=== PATIENT | female | born 1985 | race Caucasian/White ===

== ENCOUNTER 2024-09-20 09:36 | Emergency (ER) | payer OTHER, SELFPAY ==
[2024-09-20 09:46] VITALS: BP 138/110; PULSE 81; RESP 16; TEMP 36.4; O2SAT 100
--- NOTE | 2024-09-20 10:34 | ED.EAR ---
HPI - Ear Problem General Chief complaint: Ear Stated complaint: ears clogged Time Seen by Provider: 09/20/24 10:35 Source: patient Mode of arrival: ambulatory Limitations: no limitations History of Present Illness HPI Narrative: 39-year-old female presented for complaint of bilateral ears feeling clogged and decreased hearing. Onset yesterday. Denies tinnitus, dizziness, nausea, vomiting, fevers or lethargy. Reports recent nasal congestion and drainage. MD Complaint: ear pain Related Data Home Medications ?Medication ?Instructions ?Recorded ?Confirmed ?Last Taken ?Type No Home Medications 09/20/24 09/20/24 Unknown History Allergies Allergy/AdvReac Type Severity Reaction Status Date / Time No Known Allergies Allergy Unverified 09/20/24 10:10 Review of Systems Review of Systems: CONSTITUTIONAL: Denies malaise, chills, or fever. EYES: Denies visual changes, redness, or discharge. ENT: Denies rhinorrhea, congestion, sinus pain, and sore throat. Reports ears clogged CARDIOVASCULAR: Denies chest pain, palpitations, or edema. RESPIRATORY: Denies cough or dyspnea. GASTROINTESTINAL: Denies abdominal pain, nausea, vomiting, diarrhea SKIN: Denies rash or itching. MUSCULOSKELETAL: Denies myalgia. NEUROLOGIC: Denies headache. All systems reviewed & are unremarkable except as noted in HPI and below PMFSH Family History Family History (Updated 06/11/17 @ 15:00 by DOCTOR UNKNOWN) Grandparent Diabetes mellitus Hypertension Father Hypertension Mother Hypertension Social History Social History Smoking status: Never smoker Second hand tobacco smoke exposure: No Alcohol intake: never Comments At time of signature, agree with nursing past medical, surgical, social and family history. There is no relevant family history pertinent to the presenting complaint Exam Narrative: GENERAL: Well-appearing EYES: PERRLA, conjunctivae clear ENT: Nares clear. Mucous membranes moist. TMs unable to visualize bilaterally due to excess cerumen. canal not erythematous, no drainage, no tragal tenderness. Oropharynx not erythematous without lesions. no drooling, no hoarseness, no trismus, uvula midline. NECK: Supple. No lymphadenopathy CHEST: even unlabored SKIN: Warm, dry, no rash. NEURO: Alert and oriented x3. PSYCH: Normal mood and affect Course Course Emergency Course: Patient is aware of diagnosis, understands and agrees to treatment plan. Anticipatory guidance given. Patient agrees to follow-up as directed and is aware of reasons to seek care at the emergency department. Portions of this record may have been created with voice recognition software Level of Care: Express Care Visit Vital Signs Vital signs: Vital Signs Temperature 97.6 F 09/20/24 09:46 Pulse Rate 81 09/20/24 09:46 Respiratory Rate 16 09/20/24 09:46 Blood Pressure 138/110 H 09/20/24 09:46 Pulse Oximetry 100 09/20/24 09:46 Oxygen Delivery Room Air 09/20/24 09:46 Temperature 97.6 F 09/20/24 09:46 Pulse Rate 81 09/20/24 09:46 Respiratory Rate 16 09/20/24 09:46 Blood Pressure 138/110 H 09/20/24 09:46 Pulse Oximetry 100 09/20/24 09:46 Oxygen Delivery Room Air 09/20/24 09:46 Reviewed Procedures Ear Wax Removal Both Ears: Ear Wax Removal Date: 09/20/24 Cerumenolytic Used: other (Warm water and hydrogen peroxide) Results: Re-examined: some cerumen remains (bilaterally near TM) TM Examination: other (unable to visualize) Patient Tolerated Procedure: well and no complications Technique: ear canal irrigated and ear canal curetted Medical Decision Making MDM Narrative Medical decision making narrative: Pt continues to have cerumen impacted near bilateral TMs, unable to fully remove. Pt is advised to use otc drops at home and return as needed. Advised supportive measures and signs/symptoms to go to the ER. Patient is appropriate for outpatient treatment and follow-up. Differential Diagnosis Differential Diagnosis: Coronavirus, strep pharyngitis, allergic rhinitis, upper respiratory tract infection, sinusitis, rhinosinusitis, nasopharyngitis, viral pharyngitis, otitis media, otitis externa, eustachian tube dysfunction, foreign body, cerumen impaction. Vital Signs Vital Signs: Vital Signs Temperature 97.6 F 09/20/24 09:46 Pulse Rate 81 09/20/24 09:46 Respiratory Rate 16 09/20/24 09:46 Blood Pressure 138/110 H 09/20/24 09:46 Pulse Oximetry 100 09/20/24 09:46 Oxygen Delivery Room Air 09/20/24 09:46 Temperature 97.6 F 09/20/24 09:46 Pulse Rate 81 09/20/24 09:46 Respiratory Rate 16 09/20/24 09:46 Blood Pressure 138/110 H 09/20/24 09:46 Pulse Oximetry 100 09/20/24 09:46 Oxygen Delivery Room Air 09/20/24 09:46 Discharge Plan Discharge Clinical Impression: Bilateral impacted cerumen Patient Disposition: Home Condition: Stable Instructions: Antibiotic Form, How to Use Ear Drops (ED) Additional Instructions: Please use a earwax softening agent such as [id number] Debrox or a mixture of 1 part hydrogen peroxide in 1 part warm water several times weekly to keep your earwax soft and prevent further impaction. Please follow-up with your primary care doctor if you develop new symptoms. If you have urgent concerns please go to the ER. Patient Language: Hebrew Prescriptions: No Action No Home Medications Follow-up/Referrals: PHYSICIAN,SUPERVISOR [employer] [Primary Care Provider] -
== END 2024-09-20 11:04 | disposition home or self-care (01) ==
PROVIDERS: Emergency Provider Nurse Practitioner Family
DX: H61.23 Impacted cerumen, bilateral (principal)
CPT/HCPCS: 69210; 99212; G0463